=== PATIENT | female | born 1980 | race American Indian/Alaskan Native ===

== ENCOUNTER 2017-11-30 23:49 | Inpatient (IN) | payer MEDICAID ==
[2017-12-01] MEDS ORDERED: ATIVAN ONE (01:17)
[2017-12-01] MEDS ORDERED: KEPPRA 1,000 MG/NS 0.75% 100ML 1,000 MG/100 ML BAG IV ONE ×2 (01:18→01:21)
[2017-12-01] MEDS ORDERED: NACL 0.9% 1000 ML 1,000 ML IV ONE (01:23)
[2017-12-01] MEDS ORDERED: ATIVAN IV ONE ×2 (02:00→02:10)
--- NOTE | 2017-12-01 02:23 | Emergency Department Report ---
HPI - General Chief Complaint: Seizure Time Seen by Provider: 12/01/17 01:20 - HPI HPI: Room 17 The patient is a 37-year-old female presenting with a chief complaint of seizure. The patient's significant other states that the patient was in her usual state of health this evening when she had a witnessed generalized tonic- clonic seizure. The patient was brought to the hospital and while in the room she had another witnessed generalized tonic-clonic seizure. The patient is currently postictal during the interview. The patient's significant other states that the patient was diagnosed as having an ectopic yesterday and given methotrexate. The significant other reports that the patient had a history of seizures during her last prompting a (eclampsia?) . Location: Central nervous system Duration: [See above] Quality: Generalized tonic-clonic Severity: Moderate Modifying factors: [see above] Context: [see above] Mode of transportation: [not driving] ED Past Medical Hx - Past Medical History Hx Seizures: Yes - Surgical History Additional Surgical History: ectopic x 3 - Family History Family history: no significant - Social History Smoking Status: Never Smoker Substance Use Type: None - Medications Home Medications: Home Medications Medication Instructions Recorded Confirmed Last Taken Type No Known Home Medications [No 07/15/15 07/15/15 Unknown History Reported Home Medications] ED Review of Systems ROS: Stated complaint: SEIZURE Other details as noted in HPI Comment: Unobtainable due to pts medical conditions Physical Exam - Physical Exam Vital Signs: Vital Signs 12/01/17 12/01/17 12/01/17 01:18 01:20 01:30 Temperature Pulse Rate 96 H 105 H 99 H Respiratory 18 43 H 17 Rate Blood Pressure 107/65 O2 Sat by Pulse 100 100 Oximetry 12/01/17 12/01/17 12/01/17 01:40 01:50 02:00 Temperature Pulse Rate 95 H 90 85 Respiratory 18 24 24 Rate Blood Pressure 122/63 126/74 113/60 O2 Sat by Pulse 100 100 100 Oximetry 12/01/17 12/01/17 02:01 02:05 Temperature 98.4 F 98.4 F Pulse Rate Respiratory 16 Rate Blood Pressure O2 Sat by Pulse 96 Oximetry Physical Exam: GENERAL: The patient is well-developed well-nourished female currently postictal stricture. [] HEENT: Normocephalic. Atraumatic. NECK: Supple. Trachea midline CHEST/LUNGS: Clear to auscultation. There is no respiratory distress noted. HEART/CARDIOVASCULAR: Regular. There is no tachycardia. There is no gallop rub or murmur. ABDOMEN: Abdomen is soft, nontender. Patient has normal bowel sounds. There is no abdominal distention. SKIN: There is no rash. There is no edema. There is no diaphoresis. NEURO: The patient is postictal MUSCULOSKELETAL: There is no evidence of acute injury. ED Course Vital Signs 12/01/17 12/01/17 12/01/17 01:18 01:20 01:30 Temperature Pulse Rate 96 H 105 H 99 H Respiratory 18 43 H 17 Rate Blood Pressure 107/65 O2 Sat by Pulse 100 100 Oximetry 12/01/17 12/01/17 12/01/17 01:40 01:50 02:00 Temperature Pulse Rate 95 H 90 85 Respiratory 18 24 24 Rate Blood Pressure 122/63 126/74 113/60 O2 Sat by Pulse 100 100 100 Oximetry 12/01/17 12/01/17 02:01 02:05 Temperature 98.4 F 98.4 F Pulse Rate Respiratory 16 Rate Blood Pressure O2 Sat by Pulse 96 Oximetry ED Medical Decision Making - Lab Data Result diagrams: 12/01/17 01:53 12/01/17 01:53 Laboratory Tests 12/01/17 12/01/17 12/01/17 01:53 01:53 01:53 WBC 12.0 H RBC 3.67 Hgb 11.1 Hct 32.8 MCV 90 MCH 30 MCHC 34 RDW 14.4 Plt Count 292 Lymph % (Auto) 19.5 [place] % (Auto) 5.9 Eos % (Auto) 1.0 Baso % (Auto) 0.3 Lymph # 2.3 [place] # 0.7 Eos # 0.1 Baso # 0.0 Seg Neutrophils % 73.3 H Seg Neutrophils # 8.8 H PT 12.6 INR 0.90 APTT 27.0 Sodium 137 Potassium 3.7 Chloride 103.1 Carbon Dioxide 20 L Anion Gap 18 BUN 11 Creatinine 0.6 L Estimated GFR > 60 BUN/Creatinine Ratio 18 Glucose 102 H Calcium 8.0 L Magnesium Total Bilirubin 0.20 AST 15 ALT 9 Alkaline Phosphatase 64 Total Creatine Kinase Total Protein 6.6 Albumin 3.8 L Albumin/Globulin Ratio 1.4 TSH Free T4 HCG, Quant Urine Color Urine Turbidity Urine pH Ur Specific [place] Urine Protein Urine Glucose (UA) Urine Ketones Urine Blood Urine Nitrite Urine Bilirubin Urine Urobilinogen Ur Leukocyte Esterase Urine WBC (Auto) Urine RBC (Auto) U Epithel Cells (Auto) Urine Mucus Urine Opiates Screen Urine Methadone Screen Ur Barbiturates Screen Ur Phencyclidine Scrn Urine Cocaine Screen 12/01/17 12/01/17 12/01/17 01:53 01:53 02:14 WBC RBC Hgb Hct MCV MCH MCHC RDW Plt Count Lymph % (Auto) [place] % (Auto) Eos % (Auto) Baso % (Auto) Lymph # [place] # Eos # Baso # Seg Neutrophils % Seg Neutrophils # PT INR APTT Sodium Potassium Chloride Carbon Dioxide Anion Gap BUN Creatinine Estimated GFR BUN/Creatinine Ratio Glucose Calcium Magnesium 1.90 Total Bilirubin AST ALT Alkaline Phosphatase Total Creatine Kinase 222 H Total Protein Albumin Albumin/Globulin Ratio TSH 0.343 Free T4 1.20 HCG, Quant 2717 H Urine Color Yellow Urine Turbidity Clear Urine pH 6.0 Ur Specific [place] 1.021 Urine Protein <15 mg/dl Urine Glucose (UA) Neg Urine Ketones 20 Urine Blood Mod Urine Nitrite Neg Urine Bilirubin Neg Urine Urobilinogen 2.0 Ur Leukocyte Esterase Neg Urine WBC (Auto) 1.0 Urine RBC (Auto) < 1.0 U Epithel Cells (Auto) < 1.0 Urine Mucus Few Urine Opiates Screen Urine Methadone Screen Ur Barbiturates Screen Ur Phencyclidine Scrn Urine Cocaine Screen 12/01/17 02:14 WBC RBC Hgb Hct MCV MCH MCHC RDW Plt Count Lymph % (Auto) [place] % (Auto) Eos % (Auto) Baso % (Auto) Lymph # [place] # Eos # Baso # Seg Neutrophils % Seg Neutrophils # PT INR APTT Sodium Potassium Chloride Carbon Dioxide Anion Gap BUN Creatinine Estimated GFR BUN/Creatinine Ratio Glucose Calcium Magnesium Total Bilirubin AST ALT Alkaline Phosphatase Total Creatine Kinase Total Protein Albumin Albumin/Globulin Ratio TSH Free T4 HCG, Quant Urine Color Urine Turbidity Urine pH Ur Specific [place] Urine Protein Urine Glucose (UA) Urine Ketones Urine Blood Urine Nitrite Urine Bilirubin Urine Urobilinogen Ur Leukocyte Esterase Urine WBC (Auto) Urine RBC (Auto) U Epithel Cells (Auto) Urine Mucus Urine Opiates Screen Presumptive negative Urine Methadone Screen Presumptive negative Ur Barbiturates Screen Presumptive negative Ur Phencyclidine Scrn Presumptive negative Urine Cocaine Screen Presumptive negative - Radiology Data Radiology results: report reviewed (CT head), image reviewed (CT head, pelvic ultrasound) [address] [address] Cat Scan Report Signed Patient: CARINA AMBRIZ MR#: [id number] : 1980 Acct:[id number] Age/Sex: 37 / F ADM Date: 11/30/17 Loc: ED Attending Dr: Ordering Physician: ROGER MASON MD Date of Service: 12/01/17 Procedure(s): CT head/brain wo con Accession Number(s): [id number] cc: ROGER MASON MD FINAL REPORT EXAM: CT HEAD/BRAIN WO CON HISTORY: seizure COMPARISON: None available. TECHNIQUE: Axial images obtained skull base through vertex. FINDINGS: No acute intracranial hemorrhage, midline shift or pathologic extra axial fluid collection. Ventricles and cisterns are normal in size and configuration for the patient's age. Henderson-white differentiation preserved. Calvarium grossly intact. Visualized ocular globes are grossly unremarkable. Visualized para-nasal sinuses and mastoid air cells are clear. IMPRESSION: No grossly acute intracranial abnormality. Transcribed By: LMA Dictated By: ASUNCION SHIRLEY MD Electronically Authenticated By: ASUNCION SHIRLEY MD Signed Date/Time: 12/01/17258 DD/ 8 TD/TT: 12/01/[address] [address] Ultrasound Report Signed Patient: CARINA AMBRIZ MR#: [id number] : 1980 Acct:[id number] Age/Sex: 37 / F ADM Date: 11/30/17 Loc: ED Attending Dr: Ordering Physician: ROGER MASON MD Date of Service: 12/01/17 Procedure(s): US OB transvaginal Accession Number(s): [id number] cc: ROGER MASON MD FINAL REPORT EXAM: US OB TRANSVAGINAL HISTORY: history of miscarriage versus ectopic TECHNIQUE: Transvaginal imaging was obtained of the pelvis. Doppler interrogation of the adnexa was also obtained. FINDINGS: The uterus is anteverted measuring 9.5 cm x 5.7 cm x 7.3 cm. The endometrial thickness is 4.4 mm. There is no evidence of an intrauterine . There are 2 small fibroids in the body of the uterus 1 posteriorly measuring 2.1 cm x 1.5 cm x 1.9 cm. The other is more anterior measuring up to 1.1 cm in diameter. There is moderate free fluid in the cul-de-sac. In the left adnexal area between the ovary and uterus is a complex mass containing a sac-like structure. Within the sac-like structure is a small cystic structure which may represent a yolk sac. A pole is not seen. Based on the diameter of the sac this would correspond to a 5 week 5 day . This is compatible with a left adnexal ectopic . The left ovary otherwise measures 3.8 cm x 2.2 cm x 2.3 cm. Within the left ovary is a functional cyst measuring 2.6 cm in diameter. The right ovary is normal size contour and echotexture measuring 2.9 cm x 1.7 cm x 1.9 cm. The blood flow is otherwise normal to both ovaries. IMPRESSION: Left adnexal ectopic measuring 2.1 cm x 1.5 cm x 1.9 cm. Within the ectopic gestational sac is a yolk sac. An embryo is not seen. Moderate free fluid the pelvis is suggesting associated hemoperitoneum. Two small fibroids in the uterus as described. No evidence of an associated IUP. 2.6 cm functional cyst in left ovary. Both ovaries otherwise reveal normal blood flow. Transcribed By: RB Dictated By: AMBER HEREDIA MD Electronically Authenticated By: AMBER HEREDIA MD Signed Date/Time: 12/01/17515 DD/ 5 TD/TT: 12/01/17515 - Differential Diagnosis status epilepticus Critical care attestation.: If time is entered above; I have spent that time in minutes in the direct care of this critically ill patient, excluding procedure time. ED Disposition Clinical Impression: Status epilepticus, Ectopic Disposition: OP ADMIT IP TO THIS HOSP Is pt being admited?: Yes Does the pt Need Aspirin: No Condition: Stable Referrals: JONATHAN YODER MD [Primary Care Provider] - 3-5 Days Time of Disposition: 05:25 (hospitalist paged (Dr. Marcia Nam))
[2017-12-01 02:24] LABS: Basophils % (Auto) 0.3 % (0.0-1.8); Eosinophils # (Auto) 0.1 K/mm3 (0.0-0.4); Hematocrit 32.8 % (30.3-42.9); Hemoglobin 11.1 gm/dl (10.1-14.3); Lymphocytes # (Auto) 2.3 K/mm3 (1.2-5.4); Lymphocytes % (Auto) 19.5 % (13.4-35.0); Mean Corpuscular HGB Conc 34 % (30-34); Mean Corpuscular Hemoglobin 30 pg (28-32); Mean Corpuscular Volume 90 fl (79-97); Monocytes # (Auto) 0.7 K/mm3 (0.0-0.8); Monocytes % (Auto) 5.9 % (0.0-7.3); Platelet Count 292 K/mm3 (140-440); Red Blood Count 3.67 M/mm3 (3.65-5.03); Red Cell Distribution Width 14.4 % (13.2-15.2)
[2017-12-01 02:25] LABS: Bilirubin,Urine NEG (Negative); Blood,Urine MOD (Negative); Color,Urine Yellow (Yellow); Mucus,Urine FEW /HPF; Protein,Urine <15 mg/dL mg/dL (Negative)
[2017-12-01 02:27] LABS: RBC,Urine < 1.0 /HPF (0.0-6.0)
[2017-12-01 02:34] LABS: INR 0.9 (0.87-1.13)
[2017-12-01 02:38] LABS: Alanine Aminotransferase 9 units/L (7-56); Albumin 3.8 g/dL (3.9-5); BUN/Creatinine Ratio 18; Blood Urea Nitrogen 11 mg/dL (7-17); Hemolysis Index 0
[2017-12-01 02:51] LABS: Free T4 (Free Thyroxine) 1.2 ng/dL (0.76-1.46)
[2017-12-01 03:02] LABS: Cocaine Screen,Urine PRESUMPTIVE NEGATIVE; Methadone Screen,Urine PRESUMPTIVE NEGATIVE; Opiate Screen,Urine PRESUMPTIVE NEGATIVE
--- NOTE | 2017-12-01 03:05 | Cat Scan Report ---
FINAL REPORT EXAM: CT HEAD/BRAIN WO CON HISTORY: seizure COMPARISON: None available. TECHNIQUE: Axial images obtained skull base through vertex. FINDINGS: No acute intracranial hemorrhage, midline shift or pathologic extra axial fluid collection. Ventricles and cisterns are normal in size and configuration for the patient's age. Henderson-white differentiation preserved. Calvarium grossly intact. Visualized ocular globes are grossly unremarkable. Visualized para-nasal sinuses and mastoid air cells are clear. IMPRESSION: No grossly acute intracranial abnormality.
[2017-12-01 03:19] LABS: Amphetamine Screen,Urine PRESUMPTIVE POSITIVE; Benzodiazepines Screen,Urine PRESUMPTIVE POSITIVE; Cannabinoid Screen,Urine PRESUMPTIVE POSITIVE
[2017-12-01] MEDS ORDERED: TYLENOL PO ONE (04:11)
[2017-12-01] MEDS ORDERED: TYLENOL ONE (04:12)
--- NOTE | 2017-12-01 05:22 | Ultrasound Report ---
FINAL REPORT EXAM: US OB TRANSVAGINAL HISTORY: history of miscarriage versus ectopic TECHNIQUE: Transvaginal imaging was obtained of the pelvis. Doppler interrogation of the adnexa was also obtained. FINDINGS: The uterus is anteverted measuring 9.5 cm x 5.7 cm x 7.3 cm. The endometrial thickness is 4.4 mm. There is no evidence of an intrauterine . There are 2 small fibroids in the body of the uterus 1 posteriorly measuring 2.1 cm x 1.5 cm x 1.9 cm. The other is more anterior measuring up to 1.1 cm in diameter. There is moderate free fluid in the cul-de-sac. In the left adnexal area between the ovary and uterus is a complex mass containing a sac-like structure. Within the sac-like structure is a small cystic structure which may represent a yolk sac. A pole is not seen. Based on the diameter of the sac this would correspond to a 5 week 5 day . This is compatible with a left adnexal ectopic . The left ovary otherwise measures 3.8 cm x 2.2 cm x 2.3 cm. Within the left ovary is a functional cyst measuring 2.6 cm in diameter. The right ovary is normal size contour and echotexture measuring 2.9 cm x 1.7 cm x 1.9 cm. The blood flow is otherwise normal to both ovaries. IMPRESSION: Left adnexal ectopic measuring 2.1 cm x 1.5 cm x 1.9 cm. Within the ectopic gestational sac is a yolk sac. An embryo is not seen. Moderate free fluid the pelvis is suggesting associated hemoperitoneum. Two small fibroids in the uterus as described. No evidence of an associated IUP. 2.6 cm functional cyst in left ovary. Both ovaries otherwise reveal normal blood flow.
--- NOTE | 2017-12-01 05:24 | Ultrasound Report ---
FINAL REPORT EXAM: US OB < = 14 WEEKS FETUS HISTORY: history of miscarriage versus ectopic TECHNIQUE: Transabdominal imaging was obtained of the pelvis. Doppler interrogation of the adnexa was performed. FINDINGS: The uterus is anteverted measuring 9.5 cm x 5.7 cm x 7.3 cm. The mm thickness is 4.4 mm. There is no evidence of an intrauterine . In the anterior wall of the body uterus is a hypoechoic myometrial lesion measuring up to 1.1 cm in diameter compatible with fibroid. There is additional posterior myometrial lesion in the body uterus measuring up to 1.4 cm in diameter compatible with an additional fibroid. There is moderate free fluid in the cul-de-sac. In the left adnexal area between the uterus and ovary is a complex mass measuring 2.1 cm x 1.5 cm x 1.9 cm. Within this mass is a sac-like structure suspicious for a gestational sac. Within this sac-like structure is a small yolk sac. A pole is not seen. The overall findings are compatible with a left adnexal ectopic . The left ovary otherwise measures 3.8 cm x 2.2 cm x 2.3 cm. Within the left ovary is a 2.6 cm functional cyst possibly representing corpus luteum cyst. The blood flow is normal to left ovary. The right ovary is normal size contour blood flow and echotexture measuring 2.9 cm x 1.7 cm x 1.9 cm. IMPRESSION: Left adnexal ectopic measuring 2.1 cm x 1.5 cm x 1.9 cm as described. Associated moderate free fluid in cul-de-sac most likely representing hemoperitoneum. No evidence of associated intrauterine . Two small fibroids in the anterior and posterior jarrell of the body uterus. 2.6 cm functional cyst left ovary most likely representing corpus luteum cyst. No evidence of ovarian torsion otherwise.
[2017-12-01] MEDS ORDERED: SUBLIMAZE IV ONE (06:16)
[2017-12-01] MEDS ORDERED: SUBLIMAZE ONE ×2 (06:16→07:43)
[2017-12-01] MEDS ORDERED: MARCAINE 0.5% INFILTRATI ONE ×2 (07:15→08:33)
--- NOTE | 2017-12-01 07:24 | Short Stay Summary ---
Short Stay Documentation Date of service: 12/01/17 Narrative H&P: 37y/o @ 5+5 we presents to the emergency department with left lower quadrant pain. The patient reports recently being treated with methotrexate for an ectopic . She reported that while she was at home she failed significant left lower quadrant pain and became lightheaded. Her significant other reports the patient had an seizure activity. EMS was called and the patient was transported to [facility] emergency department. Pelvic ultrasound revealed findings of a left ectopic measuring 2.1 cm and evidence of a moderate hemoperitoneum. The patient reports having [address] scan of the head was negative for any acute process. The patient's urine drug screen upon presentation was positive for benzodiazepine, amphetamines, and THC. - History Principal diagnosis: left ectopic Past Medical History: seizures, other (cervical incompetence) Past Surgical History: Other (cerclage; laparoscopy; salpingectomy) Social history: single, smoking - Allergies and Medications Current Medications: Allergies No Known Allergies Allergy (Verified 12/01/17 01:20) Home Medications Medication Instructions Recorded Confirmed Last Taken Type No Known Home Medications [No 07/15/15 07/15/15 Unknown History Reported Home Medications] - Physical exam General appearance: mild distress Integumentary: no rash HEENT: Atraumatic Lungs: Clear to auscultation Breasts: deferred Heart: Regular rate Gastrointestinal: tenderness Female Genitourinary: deferred Rectal Exam: deferred Extremities: no ischemia - Brief post op/procedure progress note Date of procedure: 12/01/17 Pre-op diagnosis: left ectopic Post-op diagnosis: same Procedure: Laparoscopy Left salpingectomy Anesthesia: GETA Surgeon: ALEXANDRA AHN Estimated blood loss: minimal Pathology: list (left ectopic ) Specimen disposition: to lab Condition: stable - Hospital course Hospital course: Medications patient was admitted through the emergency department with a complaint of left lower quadrant pain. The patient had previously been seen in the emergency department and was given methotrexate for treatment of an ectopic . Pelvic ultrasound at presentation revealed findings of a left ectopic and hemoperitoneum. The patient was counseled for surgical management of her ectopic . The patient was taken for laparoscopy and left salpingectomy. Please see operative note for details of her surgery. Postoperative course was uncomplicated. The patient did not have any further seizure activity during her hospitalization. She will follow up with neurology on an outpatient basis. - Disposition Condition at discharge: Good Disposition: DC-01 TO HOME OR SELFCARE Short Stay Discharge Plan Activity: other (pelvic rest for 1 week) Diet: regular Additional Instructions: Scheduled follow-up with Dr. Ahn 2 weeks at [facility] [employer] [phone] Prescriptions: Ibuprofen [Motrin] 800 mg PO Q8HR PRN #60 tablet PRN Reason: Pain oxyCODONE /ACETAMINOPHEN [Percocet 5/325] 1 tab PO Q6HR PRN #30 tablet PRN Reason: Pain
--- NOTE | 2017-12-01 07:25 | Anesthesia Consultation ---
Anesthesia Consult and Med Hx Date of service: 12/01/17 - Airway Anesthetic Teeth Evaluation: Good Mallampati Class: Class II Intubation Access Assessment: Good - Pulmonary Exam CTA: Yes - Cardiac Exam Cardiac Exam: RRR - Pre-Operative Health Status ASA Pre-Surgery Classification: ASA2 Proposed Anesthetic Plan: General - Pulmonary Hx Smoking: No Hx Asthma: No Hx Respiratory Symptoms: No SOB: No COPD: No Home Oxygen Therapy: No Hx Pneumonia: No Hx Sleep Apnea: No - Cardiovascular System Hx Hypertension: No Hx Coronary Artery Disease: No Hx Heart Attack/AMI: No Hx Angina: No Hx Percutaneous Transluminal Coronary Angioplasty (PTCA): No Hx Cardia Arrhythmia: No Hx Pacemaker: No Hx Internal Defibrillator: No Hx Valvular Heart Disease: No Hx Heart Murmur: No Hx Peripheral Vascular Disease: No - Central Nervous System Hx Neuromuscular Disorder: No Hx Seizures: No CVA: No Hx Back Pain: No Hx Psychiatric Problems: No - Gastrointestinal Hx Ulcer: No Hx Gastroesophageal Reflux Disease: No - Endocrine Hx Renal Disease: No Hx End Stage Renal Disease: No Hx Cirrhosis: No Hx Liver Disease: No Hx Insulin Dependent Diabetes: No Hx Non-Insulin Dependent Diabetes: No Hx Thyroid Disease: No Hx Hypothyroidism: No Hx Hyperthyroidism: No - Hematic Hx Anemia: No Hx Sickle Cell Disease: No - Other Systems Hx Alcohol Use: No Hx Substance Use: No Hx Cancer: No Hx Obesity: No
[2017-12-01] MEDS ORDERED: NACL 0.9% 1000 ML 1,000 ML ONE (07:27)
[2017-12-01] MEDS ORDERED: DIPRIVAN 10 MG/ML IV ONE (07:42)
[2017-12-01] MEDS ORDERED: VERSED ONE (07:43)
[2017-12-01] MEDS ORDERED: NACL 0.9% IR ONE ×2 (08:34)
[2017-12-01] MEDS ORDERED: QUELICIN ONE (08:44)
[2017-12-01] MEDS ORDERED: XYLOCAINE MPF 2% ONE (08:44)
[2017-12-01] MEDS ORDERED: NEOSTIGMINE ONE (08:51)
--- NOTE | 2017-12-01 08:55 | Operative Report ---
Operative Report Operative Report: Date of surgery: 12/01/2017 Preoperative diagnosis: Left ectopic Postoperative diagnosis: Same as above Procedure: Laparoscopy; left salpingectomy Surgeon: Bruna Calvo M.D. Asst.: Marlon Wahl Anesthesia: General endotracheal anesthesia Estimated blood loss: 25 mL Findings: Unruptured left ectopic Pathology: Left ectopic Indication: 37-year-old @ 5+5 weeks with findings as a left ectopic . The patient received methotrexate and presented to the emergency room with worsening left lower quadrant plane and findings of a hemoperitoneum on pelvic ultrasound. Procedure: The patient was taken to the operating room and given general endotracheal anesthesia without complication. The patient is prepped and draped in a normal sterile fashion. A bivalve speculum was placed in the patient's vagina and a single-tooth tenaculum was placed on the anterior lip of the cervix .A [employer] uterine manipulator was placed and the bivalve speculum and tenaculum were then removed. Attention was then turned to the patient's abdomen where a 5 mm infraumbilical skin incision was then made. A Veress needle was placed and peritoneal entry was verified water-filled syringe. Insufflation of the peritoneal cavity was performed with CO2 gas. A 5 mm trocar was placed and the laparoscope was then inserted. The patient was then placed in Trendelenburg. A 5mm right lateral skin incision was then made. Under direct visualization a 5 mm trocar was then placed. An additional 10 mm trocar was placed left lateral. General survey of the patient's abdomen revealed small amount of blood in the posterior cul-de-sac. There were also findings of an unruptured left ectopic . The right fallopian tube was clubbed on the end. Ovaries were normal bilaterally. The fallopian tube was then followed out to the fimbriated end. The LigaSure device was used to coagulate the mesosalpinx of the left fallopian tube. The left fallopian tube was transected from the ovary and the uterus. An Endo Catch bag was placed through the 10 mm trocar site. The left ectopic was placed in the Endo Catch bag and removed through the 10 mm incision. Evacuation of the hemoperitoneum was performed. The 10 mm fascial incision was closed with a Abelardo Travis device and an 0 Vicryl suture. The pneumoperitoneum was then released. The lateral 5 mm trocar was then removed under direct visualization. The 5 mm trocar laparoscope was then removed. The skin incisions were then closed with 4-0 Monocryl. The incisions were injected with quarter percent Marcaine. Dressings were applied to the incision. The vaginal instruments were then removed atraumatically. Then successfully extubated and taken to the recovery room. All sponge laps and needle counts were correct 2.
[2017-12-01] MEDS ORDERED: LACTATED RINGERS 1,000 ML IV SCH (09:00)
[2017-12-01] MEDS ORDERED: ZEMURON IV ONE (09:00)
[2017-12-01] MEDS ORDERED: PEPCID PO NR (09:00)
[2017-12-01] MEDS ORDERED: ZOFRAN ONE (09:00)
[2017-12-01] MEDS ORDERED: DILAUDID IV PRN (09:23)
[2017-12-01] MEDS ORDERED: PERCOCET 5/325 ONE (09:42)
[2017-12-01] MEDS ORDERED: PERCOCET 5/325 PO PRN (10:12)
--- NOTE | 2017-12-01 10:22 | History and Physical Report ---
History of Present Illness Date of examination: 12/01/17 Date of admission: 12/01/17 Chief complaint: Seizure episode History of present illness: Very pleasant 37-year-old female patient presented to the emergency room with the witnessed seizure once at home and later in the emergency room Patient received Ativan and Keppra, also has history of ectopic received methotrexate evaluated by SCRIPT MANAGER underwent surgical procedure Hospitalist services versus requested to admit the patient for further evaluation management of seizures Patient did not have any new episodes of seizure Denies headache or dizziness Past History Past Medical History: No medical history, seizures, other (cervical incompetence ) Past Surgical History: Other (Ectopic surgery) Social history: single, smoking, other (recreational drug use) Family history: hypertension Medications and Allergies Allergies Allergy/AdvReac Type Severity Reaction Status Date / Time No Known Allergies Allergy Verified 12/01/17 01:20 Home Medications Medication Instructions Recorded Confirmed Last Taken Type Ibuprofen [Motrin] 800 mg PO Q8HR PRN #60 tablet 12/01/17 Unknown Rx oxyCODONE /ACETAMINOPHEN [Percocet 1 tab PO Q6HR PRN #30 tablet 12/01/17 Unknown Rx 5/325] Active Meds: Active Medications Famotidine (Pepcid) 20 mg PO PREOP NR Stop: 12/01/17 12:00 Hydromorphone HCl (Dilaudid) 0.5 mg IV Q3H PRN PRN Reason: Pain , Severe (7-10) Lactated Ringer's (Lactated Ringers) 1,000 mls @ 100 mls/hr IV DIRECT CINTHYA Oxycodone/Acetaminophen (Percocet 5/325) 1 tab PO Q6H PRN PRN Reason: Pain, Moderate (4-6) Last Admin: 12/01/17 09:42 Dose: 1 tab Review of Systems Constitutional: no weight loss, no weight gain Ears, nose, mouth and throat: no nasal congestion, no nasal discharge Cardiovascular: no chest pain, no orthopnea, no palpitations Respiratory: no cough, no shortness of breath Gastrointestinal: no nausea, no vomiting Genitourinary Female: flank pain, other (ectopic preg) Menstruation: other (ectopic) Musculoskeletal: no myalgias, no arthritis Integumentary: no rash, no lesions Neurological: seizures Psychiatric: no anxiety, no depression Endocrine: no cold intolerance, no heat intolerance Hematologic/Lymphatic: no easy bruising, no easy bleeding Allergic/Immunologic: no urticaria, no allergic rhinitis Exam - Constitutional Vitals: Temp Pulse Resp BP Pulse Ox 100.2 F H 87 16 111/67 100 12/01/17 08:21 12/01/17 09:35 12/01/17 09:42 12/01/17 09:35 12/01/17 09:35 General appearance: Present: no acute distress, well-nourished - EENT Eyes: Present: PERRL, EOM intact - Neck Neck: Present: supple, normal ROM - Respiratory Respiratory effort: normal Respiratory: negative: rales, rhonchi, wheezing - Cardiovascular Rhythm: regular Heart Sounds: Present: S1 & S2 - Extremities Extremities: no ischemia, No edema - Abdominal General gastrointestinal: Present: soft, tender (no guarding no rigidity), normal bowel sounds - Integumentary Integumentary: Present: clear, warm - Musculoskeletal Musculoskeletal: strength equal bilaterally - Psychiatric Psychiatric: appropriate mood/affect, cooperative - Neurologic Neurologic: CNII-XII intact, moves all extremities Results - Labs CBC & Chem 7: 12/01/17 01:53 12/01/17 01:53 Labs: Abnormal lab results 12/01/17 12/01/17 12/01/17 Range/Units 01:53 01:53 01:53 WBC 12.0 H (4.5-11.0) K/mm3 Seg Neutrophils % 73.3 H (40.0-70.0) % Seg Neutrophils # 8.8 H (1.8-7.7) K/mm3 Carbon Dioxide 20 L (22-30) mmol/L Creatinine 0.6 L (0.7-1.2) mg/dL Glucose 102 H (65-100) mg/dL Calcium 8.0 L (8.4-10.2) mg/dL Total Creatine Kinase 222 H (30-135) units/L Albumin 3.8 L (3.9-5) g/dL HCG, Quant (0-4) mIU/mL 12/01/17 Range/Units 01:53 WBC (4.5-11.0) K/mm3 Seg Neutrophils % (40.0-70.0) % Seg Neutrophils # (1.8-7.7) K/mm3 Carbon Dioxide (22-30) mmol/L Creatinine (0.7-1.2) mg/dL Glucose (65-100) mg/dL Calcium (8.4-10.2) mg/dL Total Creatine Kinase (30-135) units/L Albumin (3.9-5) g/dL HCG, Quant 2717 H (0-4) mIU/mL Assessment and Plan --Seizure episodes; no history of seizure Continue seizure precautions, when necessary AtivanGary Neuro consultation, EEG as needed --Ectopic ; status post surgery, SCRIPT MANAGER cleared for discharge follow SCRIPT MANAGER upon discharge --Leukocytosis; rule out infection/inflammation --Polysubstance abuse; marijuana and amphetamines, counseling done --DVT prophylaxis; SCD, no pharmacologic anticoagulation view of postop state Closely monitor the patient and adjust management as needed
[2017-12-01] MEDS ORDERED: ATIVAN IV PRN (10:25)
[2017-12-01] MEDS ORDERED: TORADOL IV PRN (10:26)
[2017-12-01] MEDS ORDERED: KEPPRA 1,000 MG in NACL 0.9% 100 ML IV ONE (14:00)
[2017-12-01] MEDS ORDERED: KEPPRA PO SCH ×2 (18:00→22:00)
[2017-12-01 18:54] VITALS: BP 118/79
--- NOTE | 2017-12-01 19:23 | Discharge Summary ---
Providers - Providers Date of Admission: 12/01/17 08:52 Date of discharge: 12/01/17 Attending physician: CHANG JAMISON 12/01/17 05:48 Consult to Physician [CONS] Stat Comment: Consulting Provider: ALEXANDRA AHN Physician Instructions: Reason For Exam: ectopic with probable hemoperitoneum 12/01/17 10:49 Consult to Physician [CONS] Routine Comment: Consulting Provider: DEMI DAMICO Physician Instructions: Reason For Exam: witnessed seizures Primary care physician: JONATHAN YODER Hospitalization Reason for admission: witnessed seizures, ectopic Condition: Good Pertinent studies: CT head without contrast; no acute abnormality ultrasound Transvaginal ultrasound Hospital course: 37 female patient was admitted through emergency room with witnessed seizure and history of ectopic Patient was seen and evaluated by ELECTROSTATIC PAINTER, underwent laparoscopic procedure, and requested hospitalist service to admit for further evaluation and management of witnessed seizure Patient was admitted to the hospital, placed on antiseizure medications, seizure precautions, evaluated by neurologist, medications were optimized However later this afternoon, the patient refused to stay in the hospital and wanted to leave against medical advise Risks, consequences, complications of leaving AGAINST MEDICAL ADVICE were discussed by the health care providers, she verbalized understanding Left AGAINST MEDICAL ADVICE Diagnosis; Seizures[witnessed seizures] Ectopic status post surgery Leukocytosis Polysubstance abuse marijuana amphetamine Disposition: [id number] LEFT AGAINST MED ADVICE Time spent for discharge: 31 min Core Measure Documentation - Palliative Care Palliative Care/ Comfort Measures: Not Applicable - Core Measures Any of the following diagnoses?: none Exam - Physical Exam Narrative exam: Left AMA - Constitutional Vitals: Temp Pulse Resp BP Pulse Ox 100.2 F H 80 16 118/79 100 12/01/17 08:21 12/01/17 12:20 12/01/17 12:20 12/01/17 12:20 12/01/17 12:20 Plan Additional Instructions: Patient left AMA Forms: AMA Form Prescriptions: Ibuprofen [Motrin] 800 mg PO Q8HR PRN #60 tablet PRN Reason: Pain oxyCODONE /ACETAMINOPHEN [Percocet 5/325] 1 tab PO Q6HR PRN #30 tablet PRN Reason: Pain
== END 2017-12-01 14:36 | disposition left against medical advice (07) | DRG 777 ==
LOC: ED 23:49 → OR 23:49 → ED 12-01 06:55 → 3B-SURG 12-01 08:52
PROVIDERS: ADMIT Internal Medicine; ATTEND Internal Medicine
PROC: 10T24ZZ Resection of Products of Conception, Ectopic, Percutaneous Endoscopic Approach (ICD-10-PCS; principal; 2017-12-01)
PROC: 0UB64ZZ Excision of Left Fallopian Tube, Percutaneous Endoscopic Approach (ICD-10-PCS; 2017-12-01)
PROC: 0U9F4ZZ Drainage of Cul-de-sac, Percutaneous Endoscopic Approach (ICD-10-PCS; 2017-12-01)
DX: O00.102 Left tubal pregnancy without intrauterine pregnancy (principal); O99.351 Diseases of the nervous system complicating pregnancy, first trimester; F15.10 Other stimulant abuse, uncomplicated; O99.321 Drug use complicating pregnancy, first trimester; G40.901 Epilepsy, unspecified, not intractable, with status epilepticus; O26.891 Other specified pregnancy related conditions, first trimester; K66.1 Hemoperitoneum; F12.10 Cannabis abuse, uncomplicated; Z82.49 Family history of ischemic heart disease and other diseases of the circulatory system; Z71.51 Drug abuse counseling and surveillance of drug abuser; Z3A.01 Less than 8 weeks gestation of pregnancy
CPT/HCPCS: 36415; 70450; 76801; 76817; 80053; 80307; 81001; 82550; 83735; 84439; 84443; 84702; 85025; 85610; 85730; 86850; 86900; 86901; 88302; 88305; A4217; J0330; J1953; J2060; J2250; J2405; J2704; J2710; J3010; J7030